=== PATIENT | male | born 2000 | race Caucasian/White ===

== ENCOUNTER 2024-07-05 03:56 | Emergency (ER) | payer BC ==
[~2024-07-05] VITALS: Ht 180.3 cm; Wt 79.5 kg
[2024-07-05 04:17] LABS: BASO # 0.1 K/mm3 (0.0-0.2); BASO % 0.8 % (0.0-2.0); EOS # 0.2 K/mm3 (0.0-0.7); EOS % 3.3 % (0.0-4.0); GRAN % 41.2 % (42.2-75.2); HEMATOCRIT 45.3 % (42.0-52.0); LYMPH # 3.4 K/mm3 (1.2-3.4); MEAN CELL VOLUME 87 fl (80.0-100.0); MEAN CORPUSCULAR HEMOGLOBIN 31 pg (27-31); MEAN CORPUSCULAR HGB CONC 35 g/dl (33.0-37.0); MEAN PLATELET VOLUME 10.3 fl (7.4-10.4); MONO # 0.6 K/mm3 (0.1-0.6); MONO % 7.6 % (1.7-9.3); PLATELET COUNT 225 K/mm3 (130-400); RED BLOOD COUNT 5.21 M/mm3 (4.20-5.60); REDCELL DISTRIBUTION WIDTH-CV 12.5 % (11.5-14.5)
[2024-07-05 04:18] LABS: INR 1.1 (0.8-3.0); PROTHROMBIN TIME 11.5 SECONDS (9.7-12.8)
[2024-07-05 04:21] LABS: PARTIAL THROMBOPLASTIN TIME 27.3 SECONDS (26.0-37.0)
[2024-07-05] MEDS ORDERED: Iohexol 300 - 100 ML VIAL IV ONE (04:23)
[2024-07-05] MEDS ORDERED: NS 50 ML IV SCH (04:23)
[2024-07-05 04:32] LABS: ALBUMIN 4.5 g/dL (3.5-5.0); BILIRUBIN,TOTAL 1.2 mg/dL (0.2-1.2); CALCIUM 9.3 mg/dL (8.4-10.2); CREATININE, serum 1.08 mg/dL (0.72-1.25); POTASSIUM 3.1 mEq/L (3.5-4.5); TOTAL PROTEIN 7.2 g/dl (6.2-8.1)
[2024-07-05] MEDS ORDERED: fentaNYL 50 MCG/ML 2 ML VIAL IV ONE ×2 (05:30→08:00)
[2024-07-05 07:57] VITALS: BP 160/95; PULSE 88
== END 2024-07-05 08:09 | disposition short-term general hospital (02) ==
LOC: COL.ER 03:56
PROVIDERS: Emergency Medicine
DX: S02.82XA Fracture of other specified skull and facial bones, left side, initial encounter for closed fracture (principal); S01.81XA Laceration without foreign body of other part of head, initial encounter; S01.512A Laceration without foreign body of oral cavity, initial encounter; V86.65XA Passenger of 3- or 4- wheeled all-terrain vehicle (ATV) injured in nontraffic accident, initial encounter
CPT/HCPCS: J3010; Q9967